=== PATIENT | male | born 1945 | race Caucasian/White ===

== ENCOUNTER → 2017-11-27 | Outpatient (CLI) | payer OTHER ==
[2015-03-08 09:10] VITALS: BP 91/57
--- NOTE | 2017-11-27 11:31 | MRI ---
MRI BRAIN WITHOUT CONTRAST CLINICAL HISTORY: 71-year-old male with severe headache and dizziness with right-sided headache and r ight-sided neck pain. COMPARISON: None. TECHNIQUE: Multiplanar, multisequence MR images of the brain were obtained without contrast. FINDINGS: There is no evidence of diffusion restriction. The craniocervical junction is normal. Pitui tary and optic nerve complex are normal. Multifocal punctate T2 FLAIR signal hyperintensities are pre sent within the periventricular and supraventricular white matter that are nonspecific in appearance but most likely to represent microvascular white matter ischemic changes. Normal signal characteristi cs and morphology are demonstrated within the cerebral cortex, corpus callosum, deep pettit nuclei, bra instem and cerebellum. The major vascular flow voids, to include the dural venous sinuses, are intact . No abnormal susceptibility on gradient imaging. Age advanced cortical volume loss is present, with commensurate sulcal and ventricular prominence. The basilar cisterns are normal. The orbits and globes are within normal limits. Scattered mucosal thickening throughout the ethmoid l abyrinth with trace fluid within the left mastoid air cells. Remaining paranasal sinuses, right masto ids and tympanic cavities are clear. IMPRESSION: 1. No acute ischemic or hemorrhagic insult. 2. Mild, chronic microvascular white matter ischemic disease with associated volume loss. 3. Nonspecific fluid left mastoid air cells and mucosal thickening of the ethmoid labyrinth, correlat e clinically. Reported By:
== END ==
LOC: RAD 09:54
PROVIDERS: ATTEND Nurse Practitioner Family
DX: R51 Headache (principal); R42 Dizziness and giddiness
CPT/HCPCS: 70551